=== PATIENT | male | born 1965 | race Hispanic/Latino ===

== ENCOUNTER 2021-08-11 08:54 | Observation (INO) | payer BC, OTHER ==
[2021-08-11] VITALS (21 sets, daily range): BP systolic 117–161; BP diastolic 69–88
[~2021-08-11] VITALS: Ht 177.8 cm; Wt 103.4 kg
[2021-08-11 09:21] LABS: BASOPHILS % (AUTO) 0.5 % (0.0-5.0); EOSINOPHILS % (AUTO) 2.5 % (0.0-8.0); HEMATOCRIT 43.7 % (42-54); LYMPHOCYTES % (AUTO) 15.1 % (21.0-51.0); MEAN CORPUSCULAR HEMOGLOBIN 30.3 pg (27.0-33.0); MEAN CORPUSCULAR HGB CONC 34.3 g/dL (32.0-36.0); MEAN CORPUSCULAR VOLUME 88.3 fL (79-99); MONOCYTES % (AUTO) 10.4 % (3.0-13.0); NEUTROPHILS % (AUTO) 71.2 % (40.0-77.0); PLATELET COUNT (AUTO) 283 K/uL (130-400); RED BLOOD CELL COUNT(AUTO) 4.95 MIL/uL (4.50-6.20); RED CELL DISTRIBUTION WIDTH 12.5 % (11.0-15.5)
[2021-08-11 09:31] LABS: CREATININE 1.1 mg/dL (0.5-1.5); POTASSIUM 4.1 mmol/L (3.5-5.1)
[2021-08-11 09:36] LABS: ALBUMIN 3.4 g/dL (3.5-5.0); BILIRUBIN,TOTAL 0.6 mg/dL (0.2-1.0)
[2021-08-11] MEDS ORDERED: IOHEXOL-350 75 ML VIAL IV ONE (11:10)
[2021-08-11] MEDS ORDERED: ZOSYN 3.375GM+NS 50ML 50 ML ONE (16:57)
[2021-08-11] MEDS ORDERED: ZOSYN 3.375GM+NS 50ML 3.38 GM in 0.9%NACL 50ML 50 ML IV SCH (17:00)
[2021-08-11] MEDS: ZOSYN 3.375GM +NS 50ML IV SCH ×2 (17:00→17:33)
[2021-08-11] MEDS ORDERED: ROCURONIUM 10MG/1ML SYR 10 MG/ML ML ONE (17:32)
[2021-08-11] MEDS ORDERED: MIDAZOLAM HCL 1 MG/ML 2ML VIAL ONE (17:32)
[2021-08-11] MEDS ORDERED: PROPRANOLOL HCL 1 MG/ML VIAL IVP ONE (17:32)
[2021-08-11] MEDS ORDERED: LIDOCAINE HCL MPF 1% 5ML VIAL ONE (17:32)
[2021-08-11] MEDS ORDERED: SUCCINYLCHOLINE 200MG/10ML SYR ONE (17:32)
[2021-08-11] MEDS ORDERED: DEXAMETHASONE SOD PHOSPHATE 10MG/ML 1ML VIAL ONE (17:33)
[2021-08-11] MEDS ORDERED: PROPOFOL 10 MG/ML 20ML VIAL IV ONE (17:33)
[2021-08-11] MEDS ORDERED: FENTANYL CITRATE PF 50 MCG/1 ML 2ML VIAL ONE ×2 (17:33→18:09)
[2021-08-11] MEDS ORDERED: ONDANSETRON 4MG INJ ONE (17:33)
[2021-08-11] MEDS ORDERED: BUPIVACAINE/PF 0.5% 30ML VIAL ONE (17:50)
[2021-08-11] MEDS: LACTATED RINGERS 1000ML 1,000 ML IV SCH (18:00)
[2021-08-11] MEDS ORDERED: NEOSTIGMINE 5MG/5ML SYR IV ONE (18:47)
[2021-08-11] MEDS ORDERED: GLYCOPYRROLATE 1 MG/5 ML SYRINGE ONE (18:47)
[2021-08-11] MEDS ORDERED: MEPERIDINE-PF 25 MG/ML SYG ONE ×2 (19:07→19:18)
[2021-08-11] MEDS: TRAMADOL HCL 50 MG TABLET PO SCH (20:39)
[2021-08-11] MEDS ORDERED: ONDANSETRON 4MG INJ IVP PRN (21:00)
[2021-08-11] MEDS ORDERED: MORPHINE 4 MG SYG IVP PRN (21:00)
[2021-08-12] MEDS: ZOSYN 3.375GM +NS 50ML IV SCH ×3 (00:32→16:24)
[2021-08-12] MEDS: TRAMADOL HCL 50 MG TABLET PO SCH ×6 (00:33→19:33)
[2021-08-12 03:39] VITALS: BP 139/83
[2021-08-12 04:43] LABS: HEMATOCRIT 39.8 % (42-54); MEAN CORPUSCULAR HEMOGLOBIN 29.9 pg (27.0-33.0); MEAN CORPUSCULAR HGB CONC 33.2 g/dL (32.0-36.0); MEAN CORPUSCULAR VOLUME 90.2 fL (79-99); RED BLOOD CELL COUNT(AUTO) 4.41 MIL/uL (4.50-6.20); RED CELL DISTRIBUTION WIDTH 12.4 % (11.0-15.5); WHITE BLOOD COUNT (AUTO) 10.4 K/uL (4.8-10.8)
[2021-08-12 06:15] LABS: ALBUMIN 2.8 g/dL (3.5-5.0)
[2021-08-12 08:12] VITALS: BP 162/92
[2021-08-12] MEDS ORDERED: LISI20TA24 PO (14:57)
[2021-08-12] MEDS ORDERED: LORA10TA7 PO (14:57)
[2021-08-12] MEDS ORDERED: LACT10SO76 PO (14:57)
[2021-08-12] MEDS ORDERED: CHOL500050 PO (14:57)
[2021-08-12] MEDS ORDERED: DOCU100C33 PO (14:57)
[2021-08-12] MEDS ORDERED: DOCUSATE SODIUM 100 MG CAP PO PRN (16:30)
[2021-08-12] MEDS ORDERED: LACTULOSE 20 GM/30 ML UDCUP PO PRN (16:30)
[2021-08-12] MEDS ORDERED: LISINOPRIL 20 MG TABLET ONE (16:33)
[2021-08-12] MEDS: HYDRALAZINE 20MG/ML VIAL IV PRN (16:36)
[2021-08-12 16:59] VITALS: BP 159/106
[2021-08-12] MEDS: LISINOPRIL 20 MG TABLET PO SCH (19:33)
[2021-08-12] MEDS: LACTATED RINGERS 1000ML 1,000 ML IV SCH (19:33)
[2021-08-12 20:14] VITALS: BP 165/85
[2021-08-12 20:49] LABS: HEMATOCRIT 39.3 % (42-54)
[2021-08-12] MEDS ORDERED: LACTATED RINGERS 1000ML IV SCH (21:00)
[2021-08-13] VITALS (8 sets, daily range): BP systolic 143–178; BP diastolic 81–97
[2021-08-13] MEDS: TRAMADOL HCL 50 MG TABLET PO SCH ×6 (01:07→21:05)
[2021-08-13] MEDS: ZOSYN 3.375GM +NS 50ML IV SCH ×3 (01:07→17:31)
[2021-08-13] MEDS: HYDRALAZINE 20MG/ML VIAL IV PRN ×2 (03:38→09:36)
[2021-08-13 04:27] LABS: ALBUMIN 2.8 g/dL (3.5-5.0); CREATININE 0.9 mg/dL (0.5-1.5); POTASSIUM 3.7 mmol/L (3.5-5.1)
[2021-08-13] MEDS ORDERED: DOCUSATE SODIUM 100 MG CAP PO PRN (08:00)
[2021-08-13] MEDS ORDERED: LACTULOSE 20 GM/30 ML UDCUP PO PRN (08:00)
[2021-08-13] MEDS: LISINOPRIL 20 MG TABLET PO SCH ×2 (09:05→21:04)
[2021-08-13] MEDS: LACTATED RINGERS 1000ML 1,000 ML IV SCH (10:00)
[2021-08-14] MEDS: ZOSYN 3.375GM +NS 50ML IV SCH ×2 (01:15→08:31)
[2021-08-14] MEDS: TRAMADOL HCL 50 MG TABLET PO SCH ×4 (01:17→12:44)
[2021-08-14 04:18] VITALS: BP 140/82
[2021-08-14 04:42] LABS: ALBUMIN 2.9 g/dL (3.5-5.0); BILIRUBIN,TOTAL 0.7 mg/dL (0.2-1.0); POTASSIUM 4.1 mmol/L (3.5-5.1); TOTAL PROTEIN, SERUM 7.5 g/dL (6.0-8.3)
[2021-08-14 07:30] VITALS: BP 151/95
[2021-08-14] MEDS: LISINOPRIL 20 MG TABLET PO SCH (08:31)
[2021-08-14 11:00] VITALS: BP 164/95
== END 2021-08-14 16:00 | disposition home or self-care (01) ==
LOC: EDH 08:54 → EDHIP 17:31 → 3DH 19:59
PROVIDERS: ADMIT Internal Medicine; ATTEND Internal Medicine
DX: K80.00 Calculus of gallbladder with acute cholecystitis without obstruction (principal); D72.829 Elevated white blood cell count, unspecified; K66.0 Peritoneal adhesions (postprocedural) (postinfection); K59.00 Constipation, unspecified; K76.0 Fatty (change of) liver, not elsewhere classified; I10 Essential (primary) hypertension; E66.01 Morbid (severe) obesity due to excess calories; Z79.899 Other long term (current) drug therapy
CPT/HCPCS: 36415 ×4; 47562; 74177; 76705; 80053 ×4; 82150; 83690; 84484; 85014; 85018; 85025; 85027; 93005; 96361 ×2; 96365; 96366 ×4; 96375; 96376 ×2; 99291; G0378 ×68; J0330; J0360 ×3; J1100; J1800; J2175 ×2; J2250; J2405; J2543 ×8; J2704; J2710; J3010 ×2; J3490 ×3; J7120 ×2; Q9967; J7030